=== PATIENT | female | born 1990 | race Caucasian/White ===

== ENCOUNTER 2023-05-26 00:12 | Inpatient (IN) | payer BC ==
[2023-05-26] MEDS ORDERED: fentaNYL 50 mcg/mL 1 mL Vial SLOW IVP PRN ×2 (02:00→09:56)
[2023-05-26] MEDS ORDERED: Lactated Ringer's 1,000 ML IV SCH (02:00)
[2023-05-26] MEDS ORDERED: Promethazine HCl 25 MG/ML VIAL IM PRN ×3 (02:00→09:56)
[2023-05-26] MEDS ORDERED: Ondansetron PF 4 MG/2 ML Vial IVP PRN ×4 (02:00→09:56)
[2023-05-26] MEDS ORDERED: Acetaminophen 500 MG TAB PO PRN (02:00)
[2023-05-26] MEDS ORDERED: hydrALAZINE 20 MG/ML VIAL SLOW IVP PRN ×3 (02:00→12:05)
[2023-05-26] MEDS ORDERED: Oxytocin 30 units/NS 500 ML 500 ML IVPB SCH (02:15)
[2023-05-26] MEDS ORDERED: Lidocaine 1% (PF) 30 ML VIAL SC PRN (02:15)
[2023-05-26] MEDS ORDERED: Ibuprofen 800 MG TAB PO PRN ×2 (02:15→05:15)
[2023-05-26 02:22] LABS: Hemoglobin 12.8 g/dL (12.0-15.5); Mean Corpuscular HGB CONC 32.8 g/dL (32.0-36.0); Mean Corpuscular Hemoglobin 29.5 pg (27.0-33.0); Mean Corpuscular Volume 89.9 fl (81.6-98.3); Mean Platelet Volume 12.6 fl (7.4-10.4); Platelet Count 137 10x3/uL (150-450); Red Blood Cell (RBC) Count 4.34 10x6/uL (3.90-5.03); White Blood Cell (WBC) Count 13.7 10x3/uL (3.5-10.5)
[2023-05-26 02:42] VITALS: BMI 41.3
[2023-05-26 02:54] LABS: Syphilis Antibody Nonreactive (Nonreactive); Syphilis Antibody Index 0.03 S/CO (<1.00 Non-Reactive)
[2023-05-26 02:55] LABS: Hep B Surf Ag - L&D Non-Reactive S/CO (NonReactive)
[2023-05-26] MEDS ORDERED: Zolpidem Tartrate 5 MG TAB PO PRN (05:09)
[2023-05-26] MEDS ORDERED: Bisacodyl 10 MG SUPP PR PRN ×2 (05:09→12:05)
[2023-05-26] MEDS ORDERED: Milk Of Magnesia 30 ML UDCUP PO PRN (05:09)
[2023-05-26] MEDS ORDERED: Misoprostol 200 MCG TAB VAG PRN (05:09)
[2023-05-26] MEDS ORDERED: Methylergonovine 0.2 MG/ML VIAL IM PRN (05:09)
[2023-05-26] MEDS ORDERED: Boostrix 0.5 ML (Tdap) VIAL (>/=7 yrs of age) IM ONE ×2 (05:09→12:05)
[2023-05-26] MEDS ORDERED: Preparation H Ointment 28 GM TUBE PR PRN (05:09)
[2023-05-26] MEDS ORDERED: diphenhydrAMINE 25 MG CAP PO PRN ×2 (05:09→12:05)
[2023-05-26] MEDS ORDERED: Benzocaine-Menthol 82.5 ML CAN TOP PRN (05:09)
[2023-05-26] MEDS ORDERED: fentaNYL/Ropivacaine Epidural 100 ML ONE (05:10)
[2023-05-26] MEDS ORDERED: Oxytocin 30 units/NS 500 ML 500 ML IV SCH (05:15)
[2023-05-26] MEDS ORDERED: Ibuprofen 800 MG TAB PO SCH (06:00)
[2023-05-26] MEDS ORDERED: Naloxone HCl 0.4 mg/ml Vial IVP PRN ×4 (06:05→09:56)
[2023-05-26] MEDS ORDERED: Acetaminophen 325 MG TAB PO PRN (06:05)
[2023-05-26] MEDS ORDERED: ePHEDrine Sulfate 50 MG/10 ML VIAL SLOW IVP PRN (06:05)
[2023-05-26] MEDS ORDERED: Moisturizing Cream (Eucerin) 113 GM JAR TOP PRN ×2 (06:05→09:56)
[2023-05-26] MEDS ORDERED: Lactated Ringer's 500 ML IV PRN (06:05)
[2023-05-26] MEDS ORDERED: diphenhydrAMINE 50 MG/ML VIAL IVP PRN ×2 (06:05→09:56)
[2023-05-26] MEDS ORDERED: fentaNYL 2 mcg/Ropivacaine 0.2% Epidural 100 ML CADD EPIDURAL SCH (06:15)
[2023-05-26] MEDS ORDERED: Communication Order-Pharmacy FS SCH ×2 (06:15→10:00)
[2023-05-26] MEDS ORDERED: Ferrous Sulfate 325 MG TAB PO SCH (08:00)
[2023-05-26] MEDS ORDERED: Bupivacaine 0.25% HCL 30 ML VIAL ONE (08:00)
[2023-05-26] MEDS ORDERED: Lidocaine 2% MPF 10 ML AMP (For Epidural Use) ONE (08:00)
[2023-05-26] MEDS ORDERED: Azithromycin 500 MG VIAL ONE (08:38)
[2023-05-26] MEDS ORDERED: CEFAZOLIN 2 GM VIAL ONE ×2 (08:38→08:42)
[2023-05-26] MEDS ORDERED: Famotidine/PF 20 mg/2ml Vial SLOW IVP PRN (08:43)
[2023-05-26] MEDS ORDERED: Bicitra 30 ML UDCUP PO PRN (08:43)
[2023-05-26] MEDS ORDERED: Azithromycin 500 MG in Sodium Chloride 0.9% 250 ML 250 ML IVPB SCH (08:45)
[2023-05-26] MEDS ORDERED: CEFAZOLIN 2 GM in Sodium Chloride 0.9% 100 ML IVPB SCH (08:45)
[2023-05-26] MEDS ORDERED: Ondansetron PF 4 MG/2 ML Vial ONE (08:58)
[2023-05-26] MEDS ORDERED: PHENYLEPHRINE-NS 100 MCG/ML 10 ML SYRINGE ONE (08:58)
[2023-05-26] MEDS ORDERED: Dexamethasone 4 mg/ml Vial ONE (08:58)
[2023-05-26] MEDS ORDERED: Oxytocin 10 UNITS/ML VIAL ONE (08:58)
[2023-05-26] MEDS ORDERED: Morphine PF 10 MG/10 ML VIAL ONE (08:58)
[2023-05-26] MEDS ORDERED: fentaNYL 50 mcg/mL 1 mL Vial ONE (08:58)
[2023-05-26] MEDS ORDERED: Prenatal Vitamin 1 TAB PO SCH (09:00)
[2023-05-26] MEDS ORDERED: Docusate 100 MG CAP PO SCH (09:00)
[2023-05-26 09:31] LABS: Analyzer IN Cardio CS NICU; RapidComm Collect By OR NURSE; pH (Cord, venous) 7.356 (7.250-7.350)
[2023-05-26 09:32] LABS: Analyzer IN Cardio CS NICU; RapidComm Collect By OR NURSE
[2023-05-26] MEDS ORDERED: Meperidine HCl/PF 25 MG/ML VIAL SLOW IVP PRN (09:56)
[2023-05-26] MEDS ORDERED: Promethazine HCl 25 MG SUPP PR PRN (09:56)
[2023-05-26] MEDS ORDERED: HYDROmorphone 0.5 MG/0.5 ML SYRINGE SLOW IVP PRN (09:56)
[2023-05-26] MEDS ORDERED: Naloxone HCl 0.4 mg/ml Vial IV PRN (09:56)
[2023-05-26] MEDS ORDERED: Ketorolac Tromethamine 30 MG/ML VIAL IVP SCH (10:00)
[2023-05-26] MEDS ORDERED: Lanolin Ointment 7 GM TUBE TOP PRN (12:05)
[2023-05-26] MEDS: Ketorolac Tromethamine 30 MG/ML VIAL IVP PRN (21:44)
[2023-05-27] MEDS ORDERED: HYDROcodone/Acetaminophen 5/325 mg Tablet PO PRN ×2 (02:30)
[2023-05-27 05:29] LABS: Hematocrit 32.4 % (34.9-44.5); Hemoglobin 10.3 g/dL (12.0-15.5); Mean Corpuscular HGB CONC 31.8 g/dL (32.0-36.0); Mean Corpuscular Hemoglobin 29.9 pg (27.0-33.0); Mean Corpuscular Volume 93.9 fl (81.6-98.3); Mean Platelet Volume 12.2 fl (7.4-10.4); Platelet Count 105 10x3/uL (150-450); Red Blood Cell (RBC) Count 3.45 10x6/uL (3.90-5.03); White Blood Cell (WBC) Count 9.9 10x3/uL (3.5-10.5)
[2023-05-27] MEDS: Ketorolac Tromethamine 30 MG/ML VIAL IVP PRN (05:29)
[2023-05-27] MEDS ORDERED: Docusate 100 MG CAP PO PRN (09:24)
[2023-05-27] MEDS: Prenatal Vitamin 1 TAB PO SCH (09:39)
[2023-05-27] MEDS: Simethicone Chewable 80 MG TAB PO PRN ×2 (10:56→14:21)
[2023-05-27] MEDS: Ibuprofen 200 MG TAB PO PRN ×2 (16:00→22:43)
[2023-05-27] MEDS ORDERED: Ibuprofen 800 MG TAB PO SCH (22:00)
[2023-05-28] MEDS: Ibuprofen 200 MG TAB PO PRN ×2 (09:28→19:14)
[2023-05-28] MEDS: Prenatal Vitamin 1 TAB PO SCH (09:29)
[2023-05-28] MEDS: Simethicone Chewable 80 MG TAB PO PRN (09:29)
[2023-05-28 20:41] VITALS: TEMP 98.3
[2023-05-29] MEDS: Ibuprofen 200 MG TAB PO PRN (05:27)
[2023-05-29 08:04] VITALS: BP 122/76
[2023-05-29] MEDS: Prenatal Vitamin 1 TAB PO SCH (09:48)
== END 2023-05-29 13:00 | disposition home or self-care (01) | DRG 788 ==
LOC: CSHLD/OP 00:12 → CSHLD 00:51 → CSHPP 11:47
PROVIDERS: ADMIT Student in an Organized Health Care Education/Training Program; ATTEND Student in an Organized Health Care Education/Training Program
PROC: 10D00Z1 Extraction of Products of Conception, Low, Open Approach (ICD-10-PCS; principal; 2023-05-26)
PROC: 10907ZC Drainage of Amniotic Fluid, Therapeutic from Products of Conception, Via Natural or Artificial Opening (ICD-10-PCS; 2023-05-26)
PROC: 10H07YZ Insertion of Other Device into Products of Conception, Via Natural or Artificial Opening (ICD-10-PCS; 2023-05-26)
DX: O76 Abnormality in fetal heart rate and rhythm complicating labor and delivery (principal); O77.0 Labor and delivery complicated by meconium in amniotic fluid; O32.8XX0 Maternal care for other malpresentation of fetus, not applicable or unspecified; O62.1 Secondary uterine inertia; Z3A.40 40 weeks gestation of pregnancy; Z37.0 Single live birth
CPT/HCPCS: 36415; 51702; 82805; 85027; 86780; 86850; 86900; 86901; 87340; 99285; J1100; J1885; J2274; J2405; J2590; J3010; S0020